=== PATIENT | female | born 1970 | race Caucasian/White ===

== ENCOUNTER 2017-11-01 10:13 | Emergency (ER) | payer OTHER ==
[~2017-11-01] VITALS: Ht 162.6 cm; Wt 102.8 kg
[~2017-11-01 10:13] MED LIST: SYNTHROID137 MCG PO
[2017-11-01 10:19] VITALS: BP 141/99
[2017-11-01] MEDS ORDERED: FLEXERIL10 MG PO (12:24)
== END 2017-11-01 13:09 | disposition home or self-care (01) ==
LOC: EME 10:13
DX: S13.4XXA Sprain of ligaments of cervical spine, initial encounter (principal); S16.1XXA Strain of muscle, fascia and tendon at neck level, initial encounter; M54.5 Low back pain; S46.912A Strain of unspecified muscle, fascia and tendon at shoulder and upper arm level, left arm, initial encounter; V43.52XA Car driver injured in collision with other type car in traffic accident, initial encounter; Y92.410 Unspecified street and highway as the place of occurrence of the external cause
CPT/HCPCS: 99281; 99285